=== PATIENT | female | born 1995 | race Caucasian/White ===

== ENCOUNTER 2020-11-14 16:29 | Outpatient (CLI) | payer BC, MEDICAID ==
[~2020-11-14] VITALS: Ht 165 cm; Wt 67.7 kg
[2020-11-14] MEDS ORDERED: NS IV 1000 ML 1,000 ML IV ONE (17:00)
[2020-11-14] MEDS ORDERED: FOLI20CA PO (17:01)
[2020-11-14] MEDS ORDERED: FLUT12AE4 IH (17:01)
[2020-11-14] MEDS ORDERED: LORA10TA76 PO (17:01)
[2020-11-14] MEDS ORDERED: VIT1TABL81 PO (17:01)
[2020-11-14] MEDS ORDERED: FAMO40TA72 PO (17:01)
[2020-11-14 17:04] VITALS: BP 118/70
[2020-11-14] MEDS ORDERED: hydrOXYzine (VISTARIL/ATARAX) 25 MG capsule/tablet PO NR (19:00)
[2020-11-14 19:25] VITALS: BP 114/60
--- NOTE | 2020-11-15 08:11 | Physician Query-Final Dx ---
MARIAMA ELDER 11/15/20 0811: Clinic Account Progress/Dx Physician Query: Please give diagnosis Please include # weeks gestation Date of Service Nov 14, 2020 at 16:29 REMY COOLEY MD 11/15/20 1604: Clinic Account Progress/Dx DIAGNOSIS: Diagnosis Third trimester 38 week gestation Abdominal pain MARIAMA ELDER Nov 15, 2020 08:11 REMY COOLEY MD Nov 15, 2020 16:04
== END 2020-11-14 21:41 ==
LOC: WSo 16:29 → LDRP 16:31 → WSo 21:41
PROVIDERS: ATTEND Family Medicine
DX: O26.893 Other specified pregnancy related conditions, third trimester (principal); R10.9 Unspecified abdominal pain; Z3A.38 38 weeks gestation of pregnancy
CPT/HCPCS: 96360; 99214

== ENCOUNTER 2020-11-28 18:50 | Inpatient (IN) | payer BC, MEDICAID ==
[2020-11-28] VITALS (8 sets, daily range): BP systolic 96–119; BP diastolic 52–70
[~2020-11-28] VITALS: Ht 167.7 cm; Wt 66.3 kg
[~2020-11-28 18:50] MED LIST: FAMO40TA72 PO; FLUT12AE4 IH; FOLI20CA PO; LORA10TA76 PO; VIT1TABL81 PO
[2020-11-28] MEDS ORDERED: D5 LR IV SOLUTION 1,000 ML IV ONE (19:14)
[2020-11-28] MEDS ORDERED: LACTATED RINGERS 1,000 ML IV ONE (19:14)
[2020-11-28] MEDS ORDERED: TERBUTALINE INJ 1 MG/ML (BRETHINE) AMP SC PRN (20:00)
[2020-11-28] MEDS ORDERED: MINERAL OIL CONCENTRATE 99.9% 15 ML UDC TOP PRN (20:00)
[2020-11-28] MEDS ORDERED: LACTATED RINGERS 1,000 ML IV SCH (20:00)
[2020-11-28 20:03] LABS: BASOPHILS % (AUTO) 0 % (0-10); EOSINOPHILS # (AUTO) 0.1 10^3/uL (0.0-0.3); EOSINOPHILS % (AUTO) 2 % (0-10); HEMATOCRIT 36 % (35-52); HEMOGLOBIN 12.4 g/dL (11.5-16.0); LYMPHOCYTES # (AUTO) 2.1 10^3/uL (1.0-4.0); LYMPHOCYTES % (AUTO) 22 % (12-44); MEAN CORPUSCULAR HEMOGLOBIN 30 pg (25-34); MEAN CORPUSCULAR HGB CONC 35 g/dL (32-36); MEAN CORPUSCULAR VOLUME 87 fL (80-99); MEAN PLATELET VOLUME 12.4 fL (9.0-12.2); MONOCYTES % (AUTO) 10 % (0-12); NEUTROPHILS # (AUTO) 6.2 10^3/uL (1.8-7.8); NEUTROPHILS % (AUTO) 66 % (42-75); PLATELET COUNT 182 10^3/uL (130-400); WHITE BLOOD COUNT 9.4 10^3/uL (4.3-11.0)
[2020-11-28] MEDS ORDERED: ZOLPIDEM 5 MG (AMBIEN) TAB PO ONE (20:15)
[2020-11-28] MEDS ORDERED: BUTORPHANOL INJ 2 MG/ML (STADOL) VIAL IV PRN (20:15)
[2020-11-28] MEDS: D5 LR IV SOLUTION 1,000 ML IV SCH (20:30)
[2020-11-28] MEDS ORDERED: RT-ALBUINH IH (20:42)
[2020-11-28] MEDS ORDERED: LORA10TA76 PO (20:42)
[2020-11-28] MEDS: CATHETER FLUSH 10 ML SYR IV SCH (22:00)
[2020-11-28] MEDS ORDERED: ZOLPIDEM 5 MG (AMBIEN) TAB ONE (22:56)
[2020-11-29] VITALS (75 sets, daily range): BP systolic 86–135; BP diastolic 51–81
[2020-11-29] MEDS: D5 LR IV SOLUTION 1,000 ML IV SCH ×3 (04:37→18:04)
[2020-11-29] MEDS ORDERED: OXYTOCIN PRE-MIX DRIP 500 ML IV SCH (08:30)
--- NOTE | 2020-11-29 08:49 | History & Physical-OB ---
OB - Chief Complaint & HPI Date/Time Date of Admission: Date of Admission: Nov 28, 2020 at 18:50 Date seen by a Provider: Nov 29, 2020 Time Seen by a Provider: 08:49 Chief Complaint/History OB-Reason for Admission/Chief: Induction of Labor Hx : 1 Expected Date of Delivery: Dec 26, 2020 Gestational Age in Weeks: 40 Gestational Age in Days: 3 Indication for induction: post dates Allergies and Home Medications Allergies Coded Allergies: Sulfa (Sulfonamide Antibiotics) (Verified Allergy, Unknown, 11/14/20) azithromycin (Verified Allergy, Unknown, 11/14/20) Home Medications Albuterol Sulfate 1 Puff Puff, 2 PUFF IH Q4H, (Reported) 1 PUFF = 90 MCG Last Action: New Order Famotidine 40 Mg Tablet, 40 MG PO DAILY, (Reported) Last Action: Reviewed Fluticasone/Salmeterol 12 Gm Hfa.aer.ad, 12 GM IH ONCE, (Reported) Last Action: Reviewed Folic Acid 20 Mg Capsule, 20 MG PO BID, (Reported) Last Action: Reviewed Loratadine 10 Mg Tablet, 10 MG PO DAILY, (Reported) Last Action: New Order Vit B6/Mag Cit & Ox/Potass Cit 1 Each Tablet.er, 1 EACH PO DAILY, (Reported) Last Action: Reviewed Patient Home Medication List Home Medication List Reviewed: Yes OB - History Hx of Present Care: Yes Ultrasounds: Normal mid trimester US Obstetrical Complications: None Medical Complications: None Patient Past Medical History N/A Social History/Family History Alcohol Use: Denies Use Smoking Cessation: Never smoker 2nd Hand Smoke Exposure: No Immunizations Tetanus Booster (TDap): Less than 5yrs Rubella: immune RPR/VDRL: Negative GBS Status: Negative HBsAG: Negative OB - Admission Exam Physical Exam Vitals: Vital Signs 11/29/20 07:45 Temp 36.4 Pulse 80 Resp 18 B/P (MAP) 111/65 (80) Pulse Ox 99 O2 Delivery Room Air HEENT: NCAT Heart: Rhythm Normal Lungs: Clear Abdomen: Gravid Cervical Dilatation: 1cm Effacement: 50% Station: -2 Membranes: Intact Accelerations: Accelerations Present Decelerations: No Decelerations Short Term Variability: Present Contractions on Admission: 6-10 Minutes Apart Intensity: Moderate Marc Scoring Tool (Modified) Dilation (cm): 1-2cm (1) Effacement (%): 51-79% (2) Descent/Station: -2 (1) Cervix Consistency: Medium(1) Cervix Position: Middle/Mid-Position (1) (7) Labs Laboratory Tests Test 11/28/20 19:25 Range/Units White Blood Count 9.4 4.3-11.0 10^3/uL Red Blood Count 4.11 3.80-5.11 10^6/uL Hemoglobin 12.4 11.5-16.0 g/dL Hematocrit 36 35-52 % Mean Corpuscular Volume 87 80-99 fL Mean Corpuscular Hemoglobin 30 25-34 pg Mean Corpuscular Hemoglobin Concent 35 32-36 g/dL Red Cell Distribution Width 14.0 10.0-14.5 % Platelet Count 182 130-400 10^3/uL Mean Platelet Volume 12.4 H 9.0-12.2 fL Immature Granulocyte % (Auto) 1 % Neutrophils (%) (Auto) 66 42-75 % Lymphocytes (%) (Auto) 22 12-44 % Monocytes (%) (Auto) 10 0-12 % Eosinophils (%) (Auto) 2 0-10 % Basophils (%) (Auto) 0 0-10 % Neutrophils # (Auto) 6.2 1.8-7.8 10^3/uL Lymphocytes # (Auto) 2.1 1.0-4.0 10^3/uL Monocytes # (Auto) 1.0 0.0-1.0 10^3/uL Eosinophils # (Auto) 0.1 0.0-0.3 10^3/uL Basophils # (Auto) 0.0 0.0-0.1 10^3/uL Immature Granulocyte # (Auto) 0.1 0.0-0.1 10^3/uL OB - Assessment/Plan/Diagnosis Assessment Assessment: induction of labor Admission Dx Third Trimester 40 week gestation Post dates Admission Status: Inpatient Order (span 2 midnights) Reason for Inpatient Admission: Labor Plan Plan: Induction Induction Method: per Pitocin Protocol Other Plan 25 yo G1 @ 40.3 wga here for IOL for post dates Plan - Cytotec, pitocin protocol - GBS neg - Desires epidural Copy Copies To 1: REMY COOLEY MD, HOLLY R MD Nov 29, 2020 08:49
[2020-11-29] MEDS ORDERED: ONDANSETRON 4 MG/2 ML (SDV) Z0FRAN IVP PRN ×2 (14:30→23:45)
[2020-11-29] MEDS ORDERED: fentaNYL 2 mcg/ml BUPIVA 0.125 100 ML ONE (15:46)
[2020-11-29] MEDS ORDERED: fentaNYL INJ 100 MCG/2 ML AMP ONE ×2 (16:33→22:34)
[2020-11-29] MEDS ORDERED: EPIDURAL (fentaNYL 2 MCG/ML BUPIVA 0.125%)100 ML BAG EPI PRN (16:45)
[2020-11-29] MEDS ORDERED: METOCLOPRAMIDE INJ 10 MG/2 ML (REGLAN) IV PRN (16:45)
[2020-11-29] MEDS ORDERED: ONDANSETRON 4 MG/2 ML (SDV) Z0FRAN IV PRN (16:45)
[2020-11-29] MEDS ORDERED: NALOXONE 0.4 MG/ML 1 ML (NARCAN) VIAL IV PRN ×3 (16:45→23:45)
[2020-11-29] MEDS ORDERED: LACTATED RINGERS 1,000 ML IV ONE (16:45)
[2020-11-29] MEDS ORDERED: diphenhydrAMINE 50 MG/ML INJ (BENADRYL) IV PRN (16:45)
[2020-11-29] MEDS ORDERED: METOCLOPRAMIDE INJ 10 MG/2 ML (REGLAN) ONE (22:07)
[2020-11-29] MEDS ORDERED: CITRIC ACID/SOB CIT (BICITRA) 30 ML UDC ONE (22:07)
[2020-11-29] MEDS ORDERED: FAMOTIDINE 20MG/2ML IV (PEPCID) ONE (22:07)
[2020-11-29] MEDS ORDERED: FAMOTIDINE 20MG/2ML IV (PEPCID) IV ONE (22:15)
[2020-11-29] MEDS ORDERED: CITRIC ACID/SOB CIT (BICITRA) 30 ML UDC PO ONE (22:15)
[2020-11-29] MEDS ORDERED: METOCLOPRAMIDE INJ 10 MG/2 ML (REGLAN) IV ONE (22:15)
[2020-11-29] MEDS ORDERED: LACTATED RINGERS 1,000 ML IV PRN ×2 (22:15)
[2020-11-29] MEDS ORDERED: BUPIVACAINE 0.25% 30 ML (SENSORCAINE) VIAL ONE (22:34)
[2020-11-29] MEDS ORDERED: LIDOCAINE PF 2% 5 ML (XYLOCAINE) VIAL ONE (22:34)
[2020-11-29] MEDS ORDERED: OXYTOCIN PRE-MIX DRIP 1,000 ML IV ONE (22:35)
--- NOTE | 2020-11-29 22:42 | Labor Progress Note ---
Labor Progress Note Labor Progress Note Date Seen by Provider: Nov 29, 2020 Time Seen by Provider: 09:45 Subjective: Pt denies complaints. Epidural in palce Objective: SVE /-2 Assessment/Plan: Verónica Blancas is a (25 /Para 1 / ,Gestational Age (wks)40.3 here for IOL for post dates - Patient had variable decelerations with several late decelerations, Pitocin was turned off - Dr Trujillo called and discussed case with him - Patient continues to have minimal variability Vitals - Labs Vital Signs - I&O Vital Signs Date Time Temp Pulse Resp B/P (MAP) Pulse Ox O2 Delivery O2 Flow Rate FiO2 11/29/20 19:00 86 86/53 (64) 95 11/29/20 18:45 73 90/52 (65) 96 Room Air 11/29/20 18:30 Room Air 11/29/20 18:15 66 93/54 (67) 95 Room Air 11/29/20 18:00 69 97/56 (70) 96 Room Air 11/29/20 18:00 36.7 67 88/51 (63) 96 Room Air 11/29/20 17:45 64 89/54 (66) 96 Room Air 11/29/20 17:45 69 97/56 (70) 96 Room Air 11/29/20 17:30 69 97/56 (70) 96 Room Air 11/29/20 17:22 69 98/53 (68) 94 Room Air 11/29/20 17:18 67 99/55 (70) 94 Room Air 11/29/20 17:13 70 96/54 (68) 94 Room Air 11/29/20 17:08 72 95/52 (66) Room Air 11/29/20 17:05 75 95/54 (68) Room Air 11/29/20 17:00 72 107/59 (75) Room Air 11/29/20 16:58 78 102/51 (68) 96 Room Air 11/29/20 16:54 77 16 105/53 (70) 96 Room Air 11/29/20 16:52 90 112/52 (72) Room Air 11/29/20 16:50 81 119/54 (75) Room Air 11/29/20 16:45 93 103/52 (69) 11/29/20 16:43 87 102/52 (69) 96 11/29/20 16:40 80 103/54 (70) 97 Room Air 11/29/20 16:33 87 110/56 (74) 11/29/20 16:30 81 114/63 (80) 98 Room Air 11/29/20 16:29 77 18 116/57 (76) 98 Room Air 11/29/20 16:24 65 122/62 (82) 99 Room Air 11/29/20 16:23 63 135/65 (88) 100 Room Air 11/29/20 16:20 76 124/74 (91) 100 Room Air 11/29/20 16:15 74 127/77 (94) 99 Room Air 11/29/20 16:12 74 128/77 (94) 99 Room Air 11/29/20 15:30 36.4 64 18 126/74 (91) Room Air 11/29/20 15:15 72 117/68 (84) Room Air 11/29/20 15:00 72 117/68 (84) Room Air 11/29/20 14:45 69 18 126/68 (87) Room Air 11/29/20 14:30 75 121/72 (88) Room Air 11/29/20 14:15 60 123/75 (91) Room Air 11/29/20 14:00 69 121/73 (89) Room Air 11/29/20 13:45 75 119/72 (88) Room Air 11/29/20 13:30 72 123/73 (90) Room Air 11/29/20 13:15 64 18 117/70 (86) Room Air 11/29/20 13:00 73 124/67 (86) Room Air 11/29/20 12:45 75 127/62 (83) Room Air 11/29/20 12:30 77 114/62 (79) Room Air 11/29/20 12:15 71 112/65 (81) Room Air 11/29/20 12:00 71 115/63 (80) Room Air 11/29/20 11:45 Room Air 11/29/20 11:30 71 120/69 (86) Room Air 11/29/20 11:15 36.6 76 18 121/72 (88) Room Air 11/29/20 11:00 73 114/67 (83) Room Air 11/29/20 10:45 68 18 123/81 (95) Room Air 11/29/20 10:15 73 122/68 (86) 11/29/20 10:00 71 112/65 (81) 11/29/20 09:45 67 115/71 (86) 11/29/20 09:30 71 109/65 (80) 11/29/20 09:15 70 114/67 (83) 11/29/20 09:00 70 18 121/73 (89) Room Air 11/29/20 08:30 74 111/68 (82) Room Air 11/29/20 07:45 36.4 80 18 111/65 (80) 99 Room Air 11/29/20 07:00 18 Room Air 11/29/20 06:00 18 Room Air 11/29/20 05:00 18 Room Air 11/29/20 04:00 74 18 111/63 (79) Room Air 11/29/20 03:00 72 18 105/63 (77) Room Air 11/29/20 02:20 75 18 111/68 (82) Room Air 11/29/20 01:50 71 18 117/76 (90) Room Air 11/29/20 01:23 71 18 124/69 (87) Room Air 11/29/20 00:18 36.0 68 18 117/67 (84) Room Air 11/28/20 23:54 77 18 114/64 (81) Room Air 11/28/20 22:54 66 16 117/53 (74) Room Air I & O 11/29/20 07:00 Intake Total 1000 ml Balance 1000 ml REMY COOLEY MD Nov 29, 2020 22:42
[2020-11-29] MEDS ORDERED: ceFAZolin INJECTION 1,000 MG ONE (22:50)
[2020-11-29] MEDS ORDERED: WATER (STERILE) FOR INJECTION 10 ML ONE (22:50)
[2020-11-29] MEDS ORDERED: MEASLES,MUMPS,RUBELLA 1 EA INJ SC SCH (23:45)
[2020-11-29] MEDS ORDERED: TETANUS,DIPTH,PERTUSS P/F (BOOSTRIX) 0.5 ML VIAL IM SCH (23:45)
[2020-11-29] MEDS: CATHETER FLUSH 10 ML SYR IV SCH ×2 (23:48→23:52)
--- NOTE | 2020-11-29 23:49 | Progress Note ---
Standard Progress Note Progress Notes/Assess & Plan Date Seen by a Provider: Nov 29, 2020 Time Seen by a Provider: 10:00 Progress/Assessment & Plan I was contacted by Dr. Rosado after failed induction. Patient was brought in for IOL for post dates, max 20 mu pitocin dose reached without any cervical change. Patient membranes intact and 1 cm. There were late decelerations noted, and pitocin was discontinued, and due to remoteness from delivery I was requested for consult to perform delivery. JADA CORDOVA DO Nov 29, 2020 23:49
[2020-11-30] VITALS (8 sets, daily range): BP systolic 94–116; BP diastolic 56–65
[2020-11-30] MEDS: KETOROLAC 30 MG/ML VIAL IV SCH ×4 (00:24→17:49)
[2020-11-30] MEDS: HYDROcodone/APAP 5 MG/325 MG (LORTAB) TAB PO PRN ×2 (03:05→15:40)
[2020-11-30] MEDS: OXYTOCIN PRE-MIX DRIP 500 ML IV SCH ×2 (03:47→03:50)
--- NOTE | 2020-11-30 05:20 | OPERATIVE REPORT ---
DATE OF SERVICE: PREOPERATIVE DIAGNOSES: 1. A 25-year-old G1, P0 at 40 weeks and 3 days' gestation. 2. Failure to progress. POSTOPERATIVE DIAGNOSES: 1. A 25-year-old G1, P0 at 40 weeks and 3 days' gestation. 2. Failure to progress. 3. Meconium stained fluid. PROCEDURE: Primary low transverse section. SURGEON: Collin Cordova DO ANESTHESIA: Epidural, which was bolused. ESTIMATED BLOOD LOSS: 1000 mL. URINE OUTPUT: 100 mL clear at the end of the procedure. FLUIDS: 1000 mL lactated Ringer's solution. FINDINGS: A live female weighing 6 pounds 6 ounces, Apgars of 7 and 9. Grossly normal appearing uterus, bilateral fallopian tubes and ovaries. SPECIMEN SENT: Placenta. INDICATIONS FOR PROCEDURE: This 25-year-old female is a patient that was consulted by Dr. Rosado to perform delivery. She was diagnosed with failure to progress despite 20 milliunits of oxytocin administration throughout the day. There were also some heart tone late decelerations. Due to inability to augment her labor without intolerances as well as remoteness from delivery and postdates, I was consulted to discuss with the patient proceeding with . Risks of the procedure were discussed with the patient in detail preoperatively. After all of her questions were answered with her significant other present, consent was obtained, the patient was taken to the operating room. OPERATIVE REPORT IN DETAIL: Once in the operating room, epidural analgesia was bolused and found to be adequate. She was placed in supine position with leftward tilt, prepped and draped in normal sterile fashion. Timeout was performed and anesthesia was tested to make a Pfannenstiel skin incision with a knife and carried down to the underlying fascia using Bovie cautery. Fascial incision extended laterally using Bovie cautery. Superior aspect of fascial incision was then grasped with Wade clamps, tented up and dissected off the underlying rectus muscles. The inferior aspect of the fascial incision was then grasped with Wade clamps, tented up and dissected off the underlying rectus muscles. Rectus muscles were then dissected down the midline using Horton scissors, which exposed the peritoneum, which I entered bluntly and extended using blunt traction. I then placed Shaun ring retractor in the peritoneal incision, which offers excellent lateral sidewall retraction. I identified the lower uterine segment, which was found to be thinned out and make a low transverse incision to the vesicouterine peritoneum and bluntly dissected off the lower uterine segment, creating a bladder flap. I then proceeded with myotomy until membranes were visualized, at which point I extended the uterine incision laterally and superiorly using bandage scissors. Amniotomy was performed and meconium stained fluid was noted at the time of rupture. With gentle fundal pressure, the infant's head was elevated up the incision where the nares and oropharynx were bulb suctioned. Anterior and posterior shoulders were delivered and the infant was then brought to the operative field with cord doubly clamped and cut and was handed off to waiting physician, Dr. Rosado who was in attendance. Cord blood was collected, 3-vessel cord with intact placenta was delivered spontaneously thereafter. IV Pitocin was initiated to facilitate uterine contraction. Uterine fundus confirmed by manual massage. The uterus was then exteriorized and cleared of all endometrial clots and debris. I then proceeded with closing the uterine incision using 0 Vicryl suture in running locked fashion. Second layer of imbricating 0 Monocryl was placed. Excellent hemostasis was noted after doing this. I then placed the uterus back within the pelvis and copiously irrigated the pelvis using normal saline. Once again, there was no active bleeding noted from any of my dissection planes. I placed Interceed antiadhesive over my low transverse incision and then removed the Shaun ring retractor. I then reapproximated the peritoneum using 3-0 Vicryl suture in running fashion. The rectus muscle reapproximated using 3-0 Vicryl suture in interrupted fashion. The fascia was reapproximated using 0 Vicryl suture in running fashion. Subcutaneous tissue was reapproximated using 3-0 plain interrupted subcutaneous stitch and skin reapproximated using 4-0 Monocryl running subcuticular. Dermabond was applied to incision and sterile dressing with adhesive white tape. The patient tolerated the procedure well and sent to recovery area in stable condition. Lap and sponge counts were correct at the end of the procedure. Instrument counts correct as well. One gram of Ancef given preoperatively for infection prophylaxis. Job ID: [id number] DocumentID: [id number] Dictated Date: 11/29/2020 23:53:17 Management And Budget Analyst Date: 11/30/2020 05:19:41 Dictated By: COLLIN CORDOVA DO
[2020-11-30] MEDS: CATHETER FLUSH 10 ML SYR IV SCH ×2 (06:00→21:43)
[2020-11-30 06:18] LABS: BASOPHILS % (AUTO) 0 % (0-10); EOSINOPHILS # (AUTO) 0.1 10^3/uL (0.0-0.3); EOSINOPHILS % (AUTO) 1 % (0-10); HEMATOCRIT 32 % (35-52); HEMOGLOBIN 10.6 g/dL (11.5-16.0); LYMPHOCYTES # (AUTO) 1.8 10^3/uL (1.0-4.0); LYMPHOCYTES % (AUTO) 13 % (12-44); MEAN CORPUSCULAR HEMOGLOBIN 30 pg (25-34); MEAN CORPUSCULAR HGB CONC 34 g/dL (32-36); MEAN CORPUSCULAR VOLUME 90 fL (80-99); MEAN PLATELET VOLUME 12.1 fL (9.0-12.2); MONOCYTES # (AUTO) 1.3 10^3/uL (0.0-1.0); MONOCYTES % (AUTO) 9 % (0-12); NEUTROPHILS # (AUTO) 10.8 10^3/uL (1.8-7.8); NEUTROPHILS % (AUTO) 77 % (42-75); PLATELET COUNT 138 10^3/uL (130-400); WHITE BLOOD COUNT 14.1 10^3/uL (4.3-11.0)
[2020-11-30] MEDS ORDERED: diphenhydrAMINE 50 MG/ML INJ (BENADRYL) IM ONE (07:15)
[2020-11-30] MEDS ORDERED: diphenhydrAMINE 25 MG TAB (BENADRYL) PO PRN (07:15)
[2020-11-30] MEDS: DOCUSATE SODIUM 100 MG (COLACE) CAP PO SCH (08:53)
--- NOTE | 2020-11-30 10:17 | Postpartum Progress Note ---
Note Note Day # 1 Subjective: Patient is without complaints. Ambulating, voiding. Tolerating a regular diet without nausea or vomiting. Normal lochia. Pain is well controlled with oral pain medications. Objective: Physical Exam: General - Alert and oriented, no apparent distress Abdomen - Soft, appropriately tender to palpation, non-distended, fundus firm at umbilicus Extremities - no edema, negative Sanju's bilaterally Assessment: Post- day # 1, status post PLTCS (failure to progress). Recovering well, hemodynamically stable Acute blood loss anemia Plan: Routine care. Encourage breast feeding. Encourage ambulation. Ferrous sulfate supplementation. Plan for discharge Thursday, 12/02 Vitals - Labs Vital Signs - I&O Vital Signs Date Time Temp Pulse Resp B/P (MAP) Pulse Ox O2 Delivery O2 Flow Rate FiO2 11/30/20 08:54 37.2 72 18 106/59 (75) 97 Room Air 11/30/20 03:05 36.9 66 18 103/58 (73) 97 Room Air 11/30/20 00:35 37.2 75 18 105/56 (72) 97 Room Air 11/30/20 00:33 Room Air 11/30/20 00:25 37 18 97/64 (75) 99 Room Air 11/30/20 00:20 Room Air 11/30/20 00:13 18 104/62 (76) 100 Room Air 11/30/20 00:05 18 94/59 (71) 98 Room Air 11/30/20 00:05 Room Air 11/29/20 23:55 16 99/51 (67) 97 Room Air 11/29/20 23:41 37.1 16 107/62 (77) 96 Room Air 11/29/20 23:41 Room Air 11/29/20 22:45 75 18 102/56 (71) 96 Room Air 11/29/20 22:30 73 18 107/56 (73) 96 Room Air 11/29/20 22:15 78 18 113/62 (79) 97 Room Air 11/29/20 22:00 36.6 78 18 110/57 (74) 96 Room Air 11/29/20 21:45 68 18 95 Room Air 11/29/20 21:30 75 18 109/62 (78) 96 Room Air 11/29/20 21:15 71 18 112/61 (78) 96 Room Air 11/29/20 21:00 71 18 97 Room Air 11/29/20 20:45 75 18 116/62 (80) 96 Room Air 11/29/20 20:30 75 18 110/60 (77) 99 Room Air 11/29/20 20:15 36.0 72 18 100/57 (71) 96 Room Air 11/29/20 20:00 80 18 97/53 (68) 96 Room Air 11/29/20 19:45 82 18 94/55 (68) 96 Room Air 11/29/20 19:30 78 18 98/53 (68) 96 Room Air 11/29/20 19:15 83 18 97/55 (69) 97 Room Air 11/29/20 19:00 86 86/53 (64) 95 11/29/20 18:45 73 90/52 (65) 96 Room Air 11/29/20 18:30 Room Air 11/29/20 18:15 66 93/54 (67) 95 Room Air 11/29/20 18:00 69 97/56 (70) 96 Room Air 11/29/20 18:00 36.7 67 88/51 (63) 96 Room Air 11/29/20 17:45 64 89/54 (66) 96 Room Air 11/29/20 17:45 69 97/56 (70) 96 Room Air 11/29/20 17:30 69 97/56 (70) 96 Room Air 11/29/20 17:22 69 98/53 (68) 94 Room Air 11/29/20 17:18 67 99/55 (70) 94 Room Air 11/29/20 17:13 70 96/54 (68) 94 Room Air 11/29/20 17:08 72 95/52 (66) Room Air 11/29/20 17:05 75 95/54 (68) Room Air 11/29/20 17:00 72 107/59 (75) Room Air 11/29/20 16:58 78 102/51 (68) 96 Room Air 11/29/20 16:54 77 16 105/53 (70) 96 Room Air 11/29/20 16:52 90 112/52 (72) Room Air 11/29/20 16:50 81 119/54 (75) Room Air 11/29/20 16:45 93 103/52 (69) 11/29/20 16:43 87 102/52 (69) 96 11/29/20 16:40 80 103/54 (70) 97 Room Air 11/29/20 16:33 87 110/56 (74) 11/29/20 16:30 81 114/63 (80) 98 Room Air 11/29/20 16:29 77 18 116/57 (76) 98 Room Air 11/29/20 16:24 65 122/62 (82) 99 Room Air 11/29/20 16:23 63 135/65 (88) 100 Room Air 11/29/20 16:20 76 124/74 (91) 100 Room Air 11/29/20 16:15 74 127/77 (94) 99 Room Air 11/29/20 16:12 74 128/77 (94) 99 Room Air 11/29/20 15:30 36.4 64 18 126/74 (91) Room Air 11/29/20 15:15 72 117/68 (84) Room Air 11/29/20 15:00 72 117/68 (84) Room Air 11/29/20 14:45 69 18 126/68 (87) Room Air 11/29/20 14:30 75 121/72 (88) Room Air 11/29/20 14:15 60 123/75 (91) Room Air 11/29/20 14:00 69 121/73 (89) Room Air 11/29/20 13:45 75 119/72 (88) Room Air 11/29/20 13:30 72 123/73 (90) Room Air 11/29/20 13:15 64 18 117/70 (86) Room Air 11/29/20 13:00 73 124/67 (86) Room Air 11/29/20 12:45 75 127/62 (83) Room Air 11/29/20 12:30 77 114/62 (79) Room Air 11/29/20 12:15 71 112/65 (81) Room Air 11/29/20 12:00 71 115/63 (80) Room Air 11/29/20 11:45 Room Air 11/29/20 11:30 71 120/69 (86) Room Air 11/29/20 11:15 36.6 76 18 121/72 (88) Room Air 11/29/20 11:00 73 114/67 (83) Room Air 11/29/20 10:45 68 18 123/81 (95) Room Air 11/29/20 10:15 73 122/68 (86) I & O 11/30/20 07:00 Intake Total 3510 ml Output Total 250 ml Balance 3260 ml Labs Laboratory Tests 11/30/20 05:32: White Blood Count 14.1H, Red Blood Count 3.52L, Hemoglobin 10.6L, Hematocrit 32L , Mean Corpuscular Volume 90, Mean Corpuscular Hemoglobin 30, Mean Corpuscular Hemoglobin Concent 34, Red Cell Distribution Width 14.3, Platelet Count 138, Mean Platelet Volume 12.1, Immature Granulocyte % (Auto) 1, Neutrophils (%) (Aut o) 77H, Lymphocytes (%) (Auto) 13, Monocytes (%) (Auto) 9, Eosinophils (%) (Auto) 1, Basophils (%) (Auto) 0, Neutrophils # (Auto) 10.8H, Lymphocytes # (Auto) 1.8, Monocytes # (Auto) 1.3H, Eosinophils # (Auto) 0.1, Basophils # (Auto) 0.0, Immature Granulocyte # (Auto) 0.1 JOY PHILIP TELESALES SPECIALIST Nov 30, 2020 10:17
[2020-11-30] MEDS ORDERED: IBUP-844 PO (10:19)
[2020-11-30] MEDS ORDERED: ACHD5005 PO (10:19)
[2020-11-30] MEDS ORDERED: DCS100C PO (10:19)
--- NOTE | 2020-11-30 10:23 | Discharge Inst-Women's Service ---
Discharge Inst-Women's Serv Depart Medication/Instructions New, Converted or Re-Newed RX: Call to Patients Pharmacy Problems Reviewed?: Yes Consults/Follow Up Additional Follow Up: Yes Orders/Referrals Jaen mcwilliams/Joy or Dr. Trujillo in 1wk; 6wk PP jean mcwilliams/Dr. Rosado Activity Activity: Activity as Tolerated Driving Instructions: No Driving for 1 Week NO SMOKING: NO SMOKING Nothing Inside Vagina: No Douching, No [place], No Tampons Diet Discharge Diet: No Restrictions Symptoms to Report to : Pain Increased, Fever Over 101 Degrees F, Vaginal Bleeding Increase For Any Problems or Questions: Contact Your Physician Skin/Wound Care Infection Signs and Symptoms: Increased Redness, Increased Drainage, Temperature Above 101 F Operative Area Clean and Dry: Keep Incision Clean/Dry Stitches/[place]/Dermabond: DermJOY Lloyd APRN Nov 30, 2020 10:23
--- NOTE | 2020-11-30 13:41 | Anesthesia-Regional Post-Op ---
Regional Patient Condition Mental Status: Alert, Oriented x3 Circulation: Same as Pre-Op Headache: Absent Sensation: Full Recovery Motor Block: Absent Post Op Complications Complications None Follow Up Care/Instructions Patient Instructions None needed. Anesthesia/Patient Condition Patient is doing well, no complaints, stable vital signs, no apparent adverse anesthesia problems. PASHA MORTENSEN DO Nov 30, 2020 13:41
[2020-11-30] MEDS ORDERED: SIMETHICONE 80 MG (MYLICON) CHEW ONE (23:56)
[2020-12-01] VITALS: BP 114/68
[2020-12-01] MEDS ORDERED: SIMETHICONE 80 MG (MYLICON) CHEW PO PRN
[2020-12-01] MEDS: HYDROcodone/APAP 5 MG/325 MG (LORTAB) TAB PO PRN
[2020-12-01 06:37] VITALS: BP 118/63
[2020-12-01] MEDS: IBUPROFEN 600 MG (MOTRIN) TAB PO SCH ×4 (06:37→18:07)
[2020-12-01] MEDS: DOCUSATE SODIUM 100 MG (COLACE) CAP PO SCH ×3 (08:28→21:52)
[2020-12-01 09:00] VITALS: BP 111/58
--- NOTE | 2020-12-01 09:01 | Postpartum Progress Note ---
Post Op Post-operative Day #1 s/p PLTCS, FTP, preeclampsia Subjective: Patient is without complaints. Ambulating, voiding after hernandez removed. Tolerating a regular diet without nausea or vomiting. Normal lochia. Pain is well controlled with oral pain medications. Passing flatus. BP controlled Objective: 12/01/20 12/01/20 00:00 06:37 Temp 36.4 36.6 Pulse 78 80 Resp 18 18 B/P (MAP) 114/68 (83) 118/63 (81) Pulse Ox 98 98 O2 Delivery Room Air Room Air 12/01/20 00:00 Intake Total 1200 ml Output Total 1850 ml Balance -650 ml Physical Exam: General - Alert and oriented, no apparent distress Abdomen - Soft, appropriately tender to palpation, non-distended, fundus firm at umbilicus Incision - clean, dry and intact; no erythema or induration, no drainage Extremities - no edema, negative Sanju's bilaterally Assessment: 1. post-operative day # 1, status post plTCS. Recovering well, hemodynamically stable Plan: Routine post-operative care. Encourage breast feeding. Encourage ambulation. VTE prophylaxis: SCDs. Ferrous sulfate supplementation. Plan for discharge tomorrow Vitals - Labs Vital Signs - I&O Vital Signs Date Time Temp Pulse Resp B/P (MAP) Pulse Ox O2 Delivery O2 Flow Rate FiO2 12/01/20 06:37 36.6 80 18 118/63 (81) 98 Room Air 12/01/20 00:00 36.4 78 18 114/68 (83) 98 Room Air 11/30/20 17:50 36.6 80 18 116/65 (82) Room Air 11/30/20 12:10 77 18 116/61 (79) Room Air I & O 12/01/20 07:00 Intake Total 1800 ml Output Total 2650 ml Balance -850 ml ALEXYS DYSON DO Dec 01, 2020 09:01
[2020-12-01 12:02] VITALS: BP 117/63
[2020-12-01 17:00] VITALS: BP 113/65
[2020-12-02] VITALS: BP 114/62
[2020-12-02] MEDS: IBUPROFEN 600 MG (MOTRIN) TAB PO SCH ×3 (00:02→12:36)
[2020-12-02 06:35] VITALS: BP 117/62
[2020-12-02] MEDS: DOCUSATE SODIUM 100 MG (COLACE) CAP PO SCH (08:10)
--- NOTE | 2020-12-02 11:02 | Postpartum Progress Note ---
Post Op Post-operative Day #2 s/p PLTCS Subjective: Patient is without complaints. Ambulating, voiding after hernandez removed. Tolerating a regular diet without nausea or vomiting. Normal lochia. Pain is well controlled with oral pain medications. Passing flatus. Objective: 12/02/20 12/02/20 00:00 06:35 Temp 36.6 36.5 Pulse 62 74 Resp 18 18 B/P (MAP) 114/62 (79) 117/62 (80) Pulse Ox 99 99 O2 Delivery Room Air Room Air 12/02/20 00:00 Intake Total 2000 ml Balance 2000 ml Physical Exam: General - Alert and oriented, no apparent distress Abdomen - Soft, appropriately tender to palpation, non-distended, fundus firm at umbilicus Incision - clean, dry and intact; no erythema or induration, no drainage Extremities - no edema, negative Sanju's bilaterally Assessment: 1 post-operative day # 2, status post PLTCS 2. Preeclampsia . Recovering well, hemodynamically stable 3. Acute blood loss anemia Plan: Routine post-operative care. Encourage breast feeding. Encourage ambulation. VTE prophylaxis: SCDs. Ferrous sulfate supplementation. Plan for discharge today Vitals - Labs Vital Signs - I&O Vital Signs Date Time Temp Pulse Resp B/P (MAP) Pulse Ox O2 Delivery O2 Flow Rate FiO2 12/02/20 06:35 36.5 74 18 117/62 (80) 99 Room Air 12/02/20 00:00 36.6 62 18 114/62 (79) 99 Room Air 12/01/20 17:00 36.4 75 18 113/65 (81) 99 Room Air 12/01/20 12:02 36.6 78 18 117/63 (81) 98 Room Air I & O 12/02/20 07:00 Intake Total 2600 ml Balance 2600 ml ALEXYS DYSON DO Dec 02, 2020 11:02
[2020-12-02] MEDS ORDERED: ACHD5005 PO (12:32)
[2020-12-03] MEDS ORDERED: PRD20T PO (18:35)
== END 2020-12-02 13:00 | disposition home or self-care (01) | DRG 787 ==
LOC: LDRP 18:50
PROVIDERS: ADMIT Family Medicine; ATTEND Family Medicine
PROC: 10D00Z1 Extraction of Products of Conception, Low, Open Approach (ICD-10-PCS; principal; 2020-11-30)
DX: O48.0 Post-term pregnancy (principal); D62 Acute posthemorrhagic anemia; Z3A.40 40 weeks gestation of pregnancy; Z37.0 Single live birth; O90.81 Anemia of the puerperium; O14.94 Unspecified pre-eclampsia, complicating childbirth; O62.0 Primary inadequate contractions; O77.0 Labor and delivery complicated by meconium in amniotic fluid
CPT/HCPCS: 36415; 85025; 86850; 86900; 86901; 90707

== ENCOUNTER 2020-12-03 17:05 | Emergency (ER) | payer BC, MEDICAID ==
[~2020-12-03] VITALS: Ht 167.7 cm; Wt 64.3 kg
[~2020-12-03 17:05] MED LIST changes: +ACHD5005 PO; +DCS100C PO; +IBUP-844 PO; +RT-ALBUINH IH
--- NOTE | 2020-12-03 17:49 | ED Integumentary General ---
General Chief Complaint: Skin/Wound Problems Stated Complaint: ALL OVER BODY RASH Source: patient, family Exam Limitations: no limitations (LAUREN TRAORE STUDENT) History of Present Illness Date Seen by Provider: Dec 03, 2020 Initial Comments This 25 yo F presents with a rash. Rash appeared yesterday afternoon. She had been discharged from the hospital after her . Pt was given MMR vaccine and believes that the vaccine has caused this rash.. Rash started on her lower back, has moved superiorly, is now on the abdomen and has migrated to the gluteal cleft. Pt reports pruritus, burning sensation, and pain with pressure of the skin. Denies fevers or chills, headaches, diaphoresis. Pt has tried hydrocortisone cream without success. Pt is currently . Timing/Duration: yesterday Severity: mild Location: torso Possible Cause: other (vaccine ) Modifying Factors: worse with scratching, worse with topical steriods Associated Symptoms: rash (LAUREN TRAORE STUDENT) Time Seen by Provider: 18:00 Initial Comments Posterior rash seems to be in a rectangular distribution radiating out from the site of her epidural. Anteriorly it seems to be between the groin and the lower quarter of the abdomen extending out from the incision site. Based on this distribution and delayed onset of presentation, this is likely a hypersensitivity dermatitis to a surgical prep of product or adhesive. Lack of rash in other areas would suggest this is not related to the vaccination. Patient has no systemic symptoms. She is breast-feeding. (MARIELA HEREDIA MD) Allergies and Home Medications Allergies Coded Allergies: Sulfa (Sulfonamide Antibiotics) (Verified Allergy, Unknown, 11/14/20) azithromycin (Verified Allergy, Unknown, 11/14/20) Patient Home Medication List Home Medication List Reviewed: Yes (MARIELA HEREDIA MD) Albuterol Sulfate (Proair Hfa) 1 Puff Puff, 2 PUFF IH Q4H, (Reported) Entered as Reported by: CORY VAZQUEZ on 11/28/202041 Docusate Sodium (Dok) 100 Mg Capsule, 100 MG PO BID Prescribed by: JOY PHILIP on 11/30/20 1019 Famotidine (Pepcid) 40 Mg Tablet, 40 MG PO DAILY, (Reported) Entered as Reported by: JP GAINES on 11/14/20 1701 Fluticasone/Salmeterol (Advair Hfa 115-21 Mcg Inhaler) 12 Gm Hfa.aer.ad, 12 GM IH ONCE, (Reported) Entered as Reported by: JP GAINES on 11/14/20 170 Folic Acid (Folic Acid) 20 Mg Capsule, 20 MG PO BID, (Reported) Entered as Reported by: JP GAINES on 11/14/20 170 Hydrocodone Bit/Acetaminophen (HYDROcodone/APAP 5 MG/325 MG TAB) 1 Tab Tab, 1-2 TAB PO Q6H Prescribed by: ALEXYS DYSON on 12/02/20 1232 Ibuprofen (Ibu) 600 Mg Tablet, 600 MG PO Q6HR Prescribed by: JOY PHILIP on 11/30/20 1019 Loratadine (Claritin) 10 Mg Tablet, 10 MG PO DAILY, (Reported) Entered as Reported by: CORY VAZQUEZ on 11/28/202041 Prednisone (Prednisone) 20 Mg Tab, 20 MG PO DAILY Prescribed by: MARIELA CUMMINGS on 12/03/20 183 Vit B6/Mag Cit & Ox/Potass Cit (Theralith Xr Tablet) 1 Each Tablet.er, 1 EACH PO DAILY, (Reported) Entered as Reported by: JP GAINES on 11/14/201700 Review of Systems Review of Systems Constitutional: No chills, No diaphoresis, No fever EENTM: No blurred vision Respiratory: No cough, No short of breath Cardiovascular: No chest pain, No palpitations Gastrointestinal: No abdominal pain, No diarrhea, No nausea, No vomiting Genitourinary: no symptoms reported : No Skin: pruritus, rash (LAUREN TRAORE) Genitourinary: see HPI (Recent delivery via ) Musculoskeletal: no symptoms reported Skin: see HPI Psychiatric/Neurological: No Symptoms Reported Endocrine: No Symptoms Reported Hematologic/Lymphatic: No Symptoms Reported (MARIELA HEREDIA MD) Past Vagbtuq-Todggn-Mwkasf Hx Patient Social History Tobacco Use?: No (LAUREN TRAORE) Immunizations Up To Date Tetanus Booster (TDap): Less than 5yrs (LAUREN TRAORE) Past Medical History Surgeries: Yes Section Respiratory: No Currently Using CPAP: No Currently Using BIPAP: No Integumentary: Yes (LAUREN TRAORE STUDENT) Respiratory: Yes Asthma Cardiac: No Neurological: No : No Genitourinary: No Gastrointestinal: No Musculoskeletal: No Endocrine: No HEENT: No Cancer: No Psychosocial: No (MARIELA HEREDIA MD) Family Medical History No Pertinent Family Hx (LAUREN TRAORE) Physical Exam Vital Signs Vital Signs - First Documented 12/03/20 17:20 Temp 36.8 Pulse 82 Resp 16 B/P (MAP) 127/72 (90) Pulse Ox 100 O2 Delivery Room Air (MARIELA HEREDIA MD) Vital Signs Capillary Refill : (LAUREN TRAORE) General Appearance: no apparent distress Cardiovascular: regular rate, rhythm, no edema Respiratory: lungs clear, normal breath sounds Back: other (rash) Skin: No diaphoresis; rash Skin Problem Location: torso Skin Problem Character: erythema, rash (LAUREN TRAORE) Progress/Results/Core Measures Results/Orders Vital Signs/I&O 12/03/20 12/03/20 17:20 18:50 Temp 36.8 36.8 Pulse 82 82 Resp 16 16 B/P (MAP) 127/72 (90) 127/72 Pulse Ox 100 100 O2 Delivery Room Air Room Air (MARIELA HEREDIA MD) Departure Impression Primary Impression: Contact dermatitis Qualified Codes: L25.3 - Unspecified contact dermatitis due to other chemical products Disposition: 01 HOME, SELF-CARE Condition: Stable Departure-Patient Inst. Decision time for Depature: 18:33 (MARIELA HEREDIA MD) Referrals: JEANNETTE KLEIN APRN (PCP/Family) Primary Care Physician Patient Instructions: Contact Dermatitis (DC) Add. Discharge Instructions: Your rash is likely due to a hypersensitivity or contact dermatitis from the surgical prep or adhesive that was used during your surgery based on its distribution. Please contact to the surgery center or the surgeon tomorrow and inquire about what product was used. Please list to that product in your allergy list in the future. You may treat this topically with hydrocortisone cream 2 or 3 times a day and Benadryl (diphenhydramine) cream up to 4 times a day. If topical treatments are not providing satisfactory relief, you may start the prednisone prescribed. Call with questions or concerns. Return to care if you have worsening symptoms. All discharge instructions reviewed with patient and/or family. Voiced understanding. Scripts Prednisone (Prednisone) 20 Mg Tab 20 MG PO DAILY, #5 TAB 0 Refills Prov: MARIELA HEREDIA MD 12/03/20 Medical Student Attestation and Attending Note: I have personally interviewed and examined this patient along with Lauren Traore, MS4. I have reviewed student documentation including history, physical, and assessments. I agree with the documentation except where otherwise noted. Exam: General: Alert, oriented, no acute distress, well developed HEENT: Normocephalic and atraumatic Neuropsych: Alert, oriented, no focal deficits Skin: Warm and dry. Patchy erythematous, slightly raised and pruritic rash over the lower back, buttocks and lower abdomen. Linear edges suggest a contact etiology. Patient was provided a prednisone prescription. She does not want to start this yet as she does not want it to affect her breast-feeding. She will use it if symptoms are not controlled with topical medications. She was advised to find out what type of surgical prep was used during the surgery and listed as an allergy in the future. (MARIELA HEREDIA MD) Copy Copies To 1: REMY COOLEY MD, KATHRYN MED STUDENT Dec 03, 2020 17:49 MARIELA HEREDIA MD Dec 03, 2020 18:36
[2020-12-03] MEDS ORDERED: PRD20T PO (18:35)
[2020-12-03 18:50] VITALS: BP 127/72
== END 2020-12-03 18:38 | disposition home or self-care (01) ==
LOC: EDUNIT# 17:05 → ER FS 17:06
DX: L25.9 Unspecified contact dermatitis, unspecified cause (principal); J45.909 Unspecified asthma, uncomplicated
CPT/HCPCS: 99281